=== PATIENT | male | born 1935 | race Caucasian/White ===

== ENCOUNTER 2017-06-02 10:53 | Emergency (ER) | payer BC ==
[~2017-06-02] VITALS: Ht 182.9 cm; Wt 80.4 kg
[2017-06-02 10:58] VITALS: TEMP 36.5; Ht 182.9 cm; Wt 80.4 kg
[2017-06-02] MEDS ORDERED: METO50TA7 PO (11:12)
[2017-06-02] MEDS ORDERED: LISI40TA PO (11:12)
[2017-06-02] MEDS ORDERED: APIX1TAB3 PO (11:12)
[2017-06-02] MEDS ORDERED: ATOR-22 PO (11:12)
[2017-06-02] MEDS ORDERED: ASPI81TA28 PO (11:12)
[2017-06-02] MEDS ORDERED: KFL/250 PO (11:12)
[2017-06-02] MEDS ORDERED: AMLO-110 PO ×2 (11:12)
[2017-06-02] MEDS ORDERED: COEN150C PO (11:12)
[2017-06-02] MEDS ORDERED: CHOL2000 PO (11:12)
[2017-06-02] MEDS ORDERED: SODIUM CHLORIDE 0.9% 1000ML 1,000 ML IV STA (11:25)
[2017-06-02] MEDS ORDERED: METHYLPREDNISOLONE 125 MG VIAL IV STA (11:25)
[2017-06-02] MEDS ORDERED: DiphenhydrAMINE HCL 50 MG/ML VIAL IV STA (11:25)
[2017-06-02] MEDS ORDERED: RANITIDINE HCL 50 MG/100 ML D5W IV STA (11:25)
--- NOTE | 2017-06-02 11:41 | EMERGENCY ROOM VISIT NOTE ---
History Report prepared by Bandar: Tan Yañez Under the Supervision of: Dr. Ninfa Galloway M.D. First contact with patient: 11:08 Chief Complaint: ALLERGIC REACTION Stated Complaint: ALLERGIC REACTION,SWOLLEN LIPS,HIVES,SENT FROM DR Clement Triage Summary: Pt sent by [facility] walk in clinic for eval of hives over the past couple days, swelling started approx 30 mins ago. Denies difficulty with swallowing or breathing. History of Present Illness The patient is an 82 year old male who presents to the Emergency Room with complaints of a sudden, constant, lip edema beginning 1 hour ago. The patient states that for the past two days he has been experiencing worsening hives. He reports that he thought it was ring worm, but it is not. The patient notes that he went to the [facility] walk-in clinic, and he was told to come here. He states that he has a history of a-fib, and he takes Lisinopril daily. He notes that he has been under amount of stress with his 's recent surgery. The patient states that he took a dose of Benadryl the other night, and it did not help. The patient reports that a few years ago he had a suprapubic catheter, and he developed a similar rash. He denies trouble swallowing, a history of diabetes mellitus, and a history of kidney problems. Source of History: patient Onset: 1 hour ago Position: lip Quality: other (edema) Timing: constant Associated Symptoms: + rash (hives) Note: Denies trouble swallowing Review of Systems See HPI for pertinent positives & negatives. A total of 10 systems reviewed and were otherwise negative. Past Medical & Surgical Medical Problems: (1) Asthma (2) Heart disease (3) HTN (hypertension) (4) Skin problem (5) Urinary problem Family History Cancer Hypertension Social History Smoking Status: Never Smoker Smokeless Tobacco Use: No Alcohol Use: none Marital Status: Housing Status: lives with significant other Occupation Status: retired Current/Historical Medications Scheduled Amlodipine (Norvasc), 5 MG PO 3XWK Amlodipine (Norvasc), 7.5 MG PO 4XWK Apixaban (Eliquis), 5 MG PO QAM Aspirin (Aspirin Ec), 81 MG PO Q2D Atorvastatin (Lipitor), 20 MG PO HS Cephalexin Monohydrate (Keflex), Unknown Dose PO QAM Cholecalciferol (Vitamin D3), 2,000 UNITS PO DAILY WITH SUPPER Coenzyme Q10 (Ubidecarenone) (Co Q-10), 1 CAP PO QAM Lisinopril (Zestril), 40 MG PO AMPM Metoprolol Succ (Toprol Xl) (Toprol-Xl), 50 MG PO DAILY WITH SUPPER Prednisone (Prednisone), 40 MG PO DAILY Allergies Coded Allergies: No Known Allergies (Unverified Allergy, Unknown, 08/09/04) Physical Exam Vital Signs Date Time Temp Pulse Resp B/P (MAP) Pulse Ox O2 Delivery O2 Flow Rate FiO2 06/02/17 14:04 71 15 06/02/17 13:59 85 20 181/92 06/02/17 13:58 86 23 06/02/17 13:53 80 17 06/02/17 13:48 74 16 06/02/17 13:43 72 16 06/02/17 13:38 77 23 06/02/17 13:33 76 17 06/02/17 13:28 75 19 06/02/17 13:23 77 18 06/02/17 13:19 164/94 06/02/17 12:58 69 18 06/02/17 12:53 69 17 06/02/17 12:48 75 13 06/02/17 12:43 80 12 06/02/17 12:38 69 14 06/02/17 12:33 75 15 06/02/17 12:28 73 14 06/02/17 12:23 71 13 06/02/17 12:18 79 24 06/02/17 12:13 73 13 06/02/17 12:08 73 15 06/02/17 12:07 72 06/02/17 10:58 36.5 101 20 177/93 97 Room Air Physical Exam Vital signs reviewed. General: Well-appearing 82 year old male, in no significant distress. HEENT: No scleral icterus, PERRLA, neck supple. Atraumatic. Marked perioral edema, no tongue or uvular swelling. Cardiovascular: Regular rate and rhythm, no extra sounds. Pulmonary: Clear to auscultation bilaterally, normal work of breathing. Abdomen: Soft, nontender, nondistended, positive bowel sounds. Musculoskeletal: Atraumatic, no peripheral edema. Neurologic: Patient awake alert and oriented x 3, full strength in all 4 extremities. Skin: Warm, dry, patchy urticaria to the trunk Medical Decision & Procedures Laboratory Results 06/02/17 11:55 Red Blood Count 4.24, Mean Corpuscular Volume 95.0, Mean Corpuscular Hemoglobin 33.3, Mean Corpuscular Hemoglobin Concent 35.0, Mean Platelet Volume 10.0, Neutrophils (%) (Auto) 74.7, Lymphocytes (%) (Auto) 9.2, Monocytes (%) (Auto) 12.1, Eosinophils (%) (Auto) 3.4, Basophils (%) (Auto) 0.2, Neutrophils # (Auto ) 4.13, Lymphocytes # (Auto) 0.51, Monocytes # (Auto) 0.67, Eosinophils # (Auto ) 0.19, Basophils # (Auto) 0.01 06/02/17 11:55 Test 06/02/17 11:55 White Blood Count 5.53 K/uL (4.8-10.8) Red Blood Count 4.24 M/uL (4.7-6.1) Hemoglobin 14.1 g/dL (14.0-18.0) Hematocrit 40.3 % (42-52) Mean Corpuscular Volume 95.0 fL (80-100) Mean Corpuscular Hemoglobin 33.3 pg (25-34) Mean Corpuscular Hemoglobin Concent 35.0 g/dl (32-36) Platelet Count 190 K/uL (130-400) Mean Platelet Volume 10.0 fL (7.4-10.4) Neutrophils (%) (Auto) 74.7 % Lymphocytes (%) (Auto) 9.2 % Monocytes (%) (Auto) 12.1 % Eosinophils (%) (Auto) 3.4 % Basophils (%) (Auto) 0.2 % Neutrophils # (Auto) 4.13 K/uL (1.4-6.5) Lymphocytes # (Auto) 0.51 K/uL (1.2-3.4) Monocytes # (Auto) 0.67 K/uL (0.11-0.59) Eosinophils # (Auto) 0.19 K/uL (0-0.5) Basophils # (Auto) 0.01 K/uL (0-0.2) RDW Standard Deviation 47.4 fL (36.4-46.3) RDW Coefficient of Variation 13.7 % (11.5-14.5) Immature Granulocyte % (Auto) 0.4 % Immature Granulocyte # (Auto) 0.02 K/uL (0.00-0.02) Anion Gap 6.0 mmol/L (3-11) Est Creatinine Clear Calc Drug Dose 41.7 ml/min Estimated GFR () 49.5 Estimated GFR (Non- 42.7 BUN/Creatinine Ratio 20.9 (10-20) Calcium Level 8.7 mg/dl (8.5-10.1) Total Bilirubin 0.7 mg/dl (0.2-1) Direct Bilirubin 0.2 mg/dl (0-0.2) Aspartate Amino Transf (AST/SGOT) 21 U/L (15-37) Alanine Aminotransferase (ALT/SGPT) 22 U/L (12-78) Alkaline Phosphatase 94 U/L (45-117) Total Protein 6.9 gm/dl (6.4-8.2) Albumin 3.5 gm/dl (3.4-5.0) Laboratory results per my review. Medications Administered Medications (Trade) Dose Ordered Sig/Minh Route Start Time Stop Time Status Last Admin Dose Admin Methylprednisolone Sodium Succinate (Solu-Medrol IV) 125 mg NOW STAT IV 06/02/17 11:25 06/02/17 11:30 DC 06/02/17 11:57 125 MG Diphenhydramine HCl (Benadryl Inj) 50 mg NOW STAT IV 06/02/17 11:25 06/02/17 11:30 DC 06/02/17 11:57 50 MG Ranitidine HCl (zANTac IV) 50 mg NOW STAT IV 06/02/17 11:25 06/02/17 11:30 DC 06/02/17 11:58 50 MG Sodium Chloride 1,000 ml @ 125 mls/hr Q8H STAT IV 06/02/17 11:25 06/02/17 19:24 06/02/17 11:58 125 MLS/HR ED Course 1121: Past medical records reviewed. The patient was evaluated in room A03. A complete history and physical examination was performed. 1125: Ordered Sodium Chloride 1000 ml @ 125 mls/hr IV, Ranitidine HCl 50mg IV, Diphenhydramine HCl 50mg IV, Methylprednisolone Sodium Succinate 125mg IV 1246: I reevaluated the patient and discussed his current exam findings. He states he is not in pain. The patient thinks his edema is getting better, but it does not appear to have. 1411: Upon reevaluation, the patient appeared to have improvement of his symptoms. I discussed findings with him. He verbalized agreement of the treatment plan. The patient will be discharged home once he receives his medication. 1439: Ordered Epinephrine 0.3mg IM Medical Decision Differential diagnosis: Etiologies such as allergic reaction, anaphylaxis, urticaria, Pretty-Marek syndrome, toxic epidermal necrolysis, erythema multiforme, cellulitis, as well as others were entertained. This patient was evaluated and appeared to be in no significant distress. IV access was obtained and laboratory work was drawn. The patient was placed on the athletic monitor and found to be in a rate controlled atrial flutter. He was given IV Solu-Medrol, IV Benadryl and IV Zantac. The patient was observed in the ER for several hours. The hives did resolve, the perioral swelling questionably improved versus did not worsen. The patient is requesting to be discharged. His recently had surgery and he does not feel comfortable with her home alone. He was offered admission to the hospital for observation regarding airway and worsening angioedema. He has declined. The patient was discharged with oral prednisone and an EpiPen. He was advised to use Benadryl as needed. He will stop the lisinopril immediately and begin Norvasc 10 mg, a higher dose and he's been on previously. Patient will follow-up with his PCP within the next 2-3 days and return to the ER for worsening of symptoms or any medical concerns. Medication Reconcilliation Current Medication List: was personally reviewed by me Blood Pressure Screening Patient's blood pressure: Elevated blood pressure Blood pressure disposition: Referred to PCP The patient will be stopping Lisinopril and increasing his Norvasc to 10mg. Impression Primary Impression: Angioedema Additional Impression: HTN (hypertension) Scribe Attestation The scribe's documentation has been prepared under my direction and personally reviewed by me in its entirety. I confirm that the note above accurately reflects all work, treatment, procedures, and medical decision making performed by me. Departure Information Dispostion Home / Self-Care Prescriptions Prednisone (Prednisone) 20 Mg Tab 40 MG PO DAILY, #8 TAB Prov: Ninfa Galloway M.D. 06/02/17 Referrals Clement Sanchez M.D. (PCP) Forms HOME CARE DOCUMENTATION FORM, IMPORTANT VISIT INFORMATION Patient Instructions My [facility] Additional Instructions Diagnosis: Angioedema, hypertension Prednisone 40 mg daily for 4 more days. Benadryl 25-50 mg every 6 hours as needed for allergic symptoms. Epi pen as directed for severe allergic symptoms. DISCONTINUE LISINOPRIL Increase your Norvasc to 10 mg daily. Follow-up with your physician in the next 2-3 days for reevaluation. Return to the ER immediately for worsening of symptoms or any medical concerns. Problem Qualifiers
[2017-06-02 12:18] LABS: BASO % 0.2 %; BASO ABS # 0.01 K/uL (0-0.2); COMPLETE YES; EOS % 3.4 %; HEMATOCRIT 40.3 % (42-52); IG% 0.4 %; LYMPH % 9.2 %; LYMPH ABS # 0.51 K/uL (1.2-3.4); MEAN CORPUSCULAR HEMOGLOBIN 33.3 pg (25-34); MONO % 12.1 %; NEUT % 74.7 %; PLATELET COUNT 190 K/uL (130-400); RED BLOOD COUNT 4.24 M/uL (4.7-6.1); WHITE BLOOD COUNT 5.53 K/uL (4.8-10.8)
[2017-06-02 12:35] LABS: BUN/CREATININE RATIO 20.9 (10-20); CALCIUM 8.7 mg/dl (8.5-10.1); CREATININE 1.5 mg/dl (0.60-1.40); POTASSIUM 4.3 mmol/L (3.5-5.1)
[2017-06-02] MEDS ORDERED: PRED20TA PO (14:38)
[2017-06-02] MEDS ORDERED: EPINEPHRINE ADULT AUTO-INJECT 0.3 MG SYR IM STA (14:39)
[2017-06-02] MEDS ORDERED: EMPTY 8 DRAM VIAL ONE (15:09)
[2017-06-02 15:39] VITALS: BP 178/95; PULSE 78; O2SAT 97
== END 2017-06-02 15:42 | disposition home or self-care (01) ==
LOC: C.EDB 10:54 → C.EDA 15:42
DX: T78.3XXA Angioneurotic edema, initial encounter (principal); X58.XXXA Exposure to other specified factors, initial encounter; I10 Essential (primary) hypertension; I48.91 Unspecified atrial fibrillation; J45.909 Unspecified asthma, uncomplicated; Z80.9 Family history of malignant neoplasm, unspecified; Z82.49 Family history of ischemic heart disease and other diseases of the circulatory system; Z79.82 Long term (current) use of aspirin; Z79.899 Other long term (current) drug therapy